=== PATIENT | male | born 1975 | race Caucasian/White ===

== ENCOUNTER 2022-08-30 16:32 | Emergency (ER) | payer BC ==
[2022-08-30] MEDS ORDERED: Lidocaine 1% 5 ML VIAL INJECT ONE (16:37)
[2022-08-30] MEDS ORDERED: Take Home: Amoxicillin/Clavulanate K 875-125 MG Tab, 6 Tab Pack PO ONE (16:39)
[2022-08-30 16:46] VITALS: BP 112/83; PULSE 68
== END 2022-08-30 17:55 | disposition home or self-care (01) ==
LOC: LL.ED 16:32
DX: S61.451A Open bite of right hand, initial encounter (principal); I10 Essential (primary) hypertension; W54.0XXA Bitten by dog, initial encounter
CPT/HCPCS: 12001; 99283; A9270-GY; J3490